=== PATIENT | female | born 1960 | race Caucasian/White ===

== ENCOUNTER 2022-04-25 10:27 | Emergency (ER) | payer BC ==
[2022-04-25] MEDS ORDERED: diphenhydrAMINE 50 MG/ML SDV IVPUSH ONE (10:28)
[2022-04-25] MEDS ORDERED: EPINEPHrine 1 MG/ML SDV IM ONE (10:29)
[2022-04-25] MEDS ORDERED: methylPREDNISolone Sodium Succinate 125 MG/2 ML SDV IVPUSH ONE (10:29)
[2022-04-25] MEDS ORDERED: Sodium Chloride 0.9% 10 ML Syringe FLUSH PRN (10:30)
== END 2022-04-25 12:00 | disposition home or self-care (01) ==
LOC: LL.ED 10:27
DX: T78.40XA Allergy, unspecified, initial encounter (principal); R06.00 Dyspnea, unspecified; Z91.030 Bee allergy status; Z88.0 Allergy status to penicillin
CPT/HCPCS: 96372; 96374; 96375; 99283; 99283-25; J0171; J1200; J2930